=== PATIENT | female | born 1960 | race Caucasian/White ===

== ENCOUNTER 2020-10-31 06:32 | Outpatient (CLI) | payer MEDICARE, OTHER ==
[~2020-10-31] VITALS: Ht 160 cm; Wt 118.2 kg
[2020-10-31] MEDS ORDERED: LEVO100C4 PO (11:14)
[2020-10-31] MEDS ORDERED: CHOL500044 PO (11:14)
[2020-10-31] MEDS ORDERED: FERR142T7 PO (11:14)
[2020-10-31] MEDS ORDERED: FURO40TA4 PO (11:14)
[2020-10-31] MEDS ORDERED: GABA300C PO (11:14)
[2020-10-31] MEDS ORDERED: VNL75T PO ×2 (11:14)
[2020-10-31] MEDS ORDERED: ESTR42.52 VG (11:14)
[2020-10-31] MEDS ORDERED: OMEP40CA6 PO (11:14)
[2020-10-31] MEDS ORDERED: MONT10TA32 PO (11:14)
[2020-10-31] MEDS ORDERED: NF-MAG64T PO (11:14)
[2020-10-31] MEDS ORDERED: BACL10TA PO (11:14)
[2020-10-31] MEDS ORDERED: L.AC1CAP6 PO (11:14)
[2020-10-31] MEDS ORDERED: RT-ALBUINH INH (11:14)
[2020-10-31] MEDS ORDERED: FLUT1BLS3 IH (11:14)
[2020-10-31] MEDS ORDERED: MIRT-68 PO (11:14)
[2020-10-31] MEDS ORDERED: DILT180C85 PO (11:14)
[2020-10-31] MEDS ORDERED: DICL75TA2 PO (11:14)
[2020-10-31] MEDS ORDERED: CALC-657 PO (11:14)
[2020-10-31] MEDS ORDERED: ASPI-999 PO (11:14)
[2020-10-31] MEDS ORDERED: TOPI50TA13 PO (11:14)
[2020-10-31] MEDS ORDERED: MMT17NA NSEACH (11:14)
[2020-10-31] MEDS ORDERED: ACET1TAB43 PO (11:14)
[2020-10-31] MEDS ORDERED: LEVO5TAB28 PO (11:14)
[2020-10-31] MEDS ORDERED: [UNRECOGNIZED DRUG - CODE] PO (11:14)
== END 2020-10-31 11:19 | disposition home or self-care (01) ==
LOC: PREOP 06:32
PROVIDERS: ATTEND Specialist
DX: Z01.818 Encounter for other preprocedural examination (principal)

== ENCOUNTER 2020-11-04 09:39 | Day surgery (SDC) | payer MEDICARE, OTHER ==
[~2020-11-04] VITALS: Ht 160 cm; Wt 118.2 kg
[~2020-11-04 09:39] MED LIST: ACET1TAB43 PO; ASPI-999 PO; BACL10TA PO; CALC-657 PO; CHOL500044 PO; DICL75TA2 PO; DILT180C85 PO; ESTR42.52 VG; FERR142T7 PO; FLUT1BLS3 IH; FURO40TA4 PO; GABA300C PO; L.AC1CAP6 PO; LEVO100C4 PO; LEVO5TAB28 PO; MIRT-68 PO; MMT17NA NSEACH; MONT10TA32 PO; NF-MAG64T PO; OMEP40CA6 PO; RT-ALBUINH INH; TOPI50TA13 PO; VNL75T PO; [UNRECOGNIZED DRUG - CODE] PO
[2020-11-04 09:45] VITALS: BP 141/62
[2020-11-04] MEDS: TETRACAINE 0.5% OPHTH SOLN 4 ML BTL (SINGLE DOSE ONLY) OU PRN ×4 (09:59→10:15)
[2020-11-04] MEDS ORDERED: MOXIFLOXACIN OPHTH SOLN 5 MG/ML 0.3 ML SYRINGE OP ONE (10:00)
[2020-11-04] MEDS ORDERED: LIDOCAINE PF 1% 2 ML VIAL IR PRN (10:00)
[2020-11-04] MEDS ORDERED: TIMOLOL MALEATE 0.5% 5 ML (TIMOPTIC) BTL OU PRN (10:00)
[2020-11-04] MEDS ORDERED: POVIDONE (BETADINE) OPHTH SOLN 5% 30 ML OP ONE (10:00)
[2020-11-04] MEDS: TROPICAMIDE 1% OPH SOLN (MYDRIACYL) 15 ML BTL OP SCH ×3 (10:06→10:15)
[2020-11-04] MEDS: PHENYLEPHRINE 10% OPHTH (NEO-SYN) 5 ML BTL OU SCH ×3 (10:06→10:15)
--- NOTE | 2020-11-04 10:20 | Ophthalmologist Pre-Op Note ---
Pre-Operative Progress Note H&P Reviewed The H&P was reviewed, patient examined and no changes noted. Date H&P Reviewed: Nov 04, 2020 Time H&P Reviewed: 10:20 Pre-Op Dx Cataract, Right Eye SINA FINNEGAN MD Nov 04, 2020 10:20
[2020-11-04] MEDS ORDERED: MIDAZOLAM 2 MG/2 ML (VERSED) VIAL ONE (10:27)
--- NOTE | 2020-11-04 10:47 | Ophthalmology Operative Report ---
Cataract removal/placement IOL PREOPERATIVE DIAGNOSIS: Cataract Right Eye POSTOPERATIVE DIAGNOSIS: Cataract Right Eye PROCEDURE: Cataract removal and placement of posterior chamber implant, right eye SURGEON: Edil Finnegan ANESTHESIA: Topical with sedation COMPLICATIONS: None ESTIMATED BLOOD LOSS: Minimal DESCRIPTION OF PROCEDURE: After proper informed consent was obtained, the patient, a 60 female, was taken to the Operating Room and the right eye was anesthetized with tetracaine. The right eye was then prepped and draped in the usual manner. A wire lid speculum was placed. A paracentesis was made at the left hand position. Preservative free lidocaine was injected into the anterior chamber followed by viscoelastic. A clear corneal incision was made in the temporal position. A capsulorrhexis was preformed and the central nuclear and cortical material were removed. The posterior capsule was polished and Tomas 21.5 AU00T0 IOL was placed into the capsular bag. The residual viscoelastic was aspirated and balanced saline solution was injected into the anterior chamber. Moxifloxacin was injected into the anterior chamber. The wound was checked and found to be water tight. The patient tolerated the procedure well without complications. EDIL FINNEGAN MD Nov 04, 2020 10:47
[2020-11-04 11:00] VITALS: BP 168/91
--- NOTE | 2020-11-04 12:48 | Anesthesia-General Post-Op ---
MAC Patient Condition Mental Status/LOC: Same as Preop Cardiovascular: Satisfactory Nausea/Vomiting: Absent Respiratory: Satisfactory Pain: Controlled Complications: Absent Post Op Complications Complications None Follow Up Care/Instructions Patient Instructions None needed. Anesthesiology Discharge Order Discharge Order Patient is doing well, no complaints, stable vital signs, no apparent adverse anesthesia problems. No complications reported per nursing. CARLOS ENRIQUE MARTINS CRNA Nov 04, 2020 12:48
--- OUTSIDE RECORDS SUMMARY | 2020-11-06 16:37 | XMS REPORT | Clinical Summary ---
Author Author [employer] Organization [facility] Address Unknown Phone Unavailable Care Team Providers Care Section Beamer Name Role Phone Ebonie Herrera MD PP Allergies Comments Active Allergy Reactions Severity Noted Date Skin blistering Benzoin Other (see Medium 10/22/2013 comments) Hydrocodone 11/26/2017 Levofloxacin 11/26/2017 Severe joint pain Levofloxacin In D5w Other (see 10/22/2013 comments) Morphine 11/26/2017 Oxycodone 11/26/2017 Phenothiazines 11/26/2017 Carisoprodol 11/26/2017 Sulfa (Sulfonamide 11/26/2017 Antibiotics) Silver 11/26/2017 Benzalkonium Chloride 11/26/2017 Bupropion Hcl 11/26/2017 Medications End Date Status Medication Sig Dispensed Refills Start Date Active amLODIPine (NORVASC) 5 mg Take 5 mg by 3 08/31 tablet mouth 1 (one) 8 time each day. Active baclofen (LIORESAL) 10 mg Take 10 mg by 3 07/31 tablet mouth 3 8 (three) times per day. Active diclofenac (VOLTAREN) 75 3 mg EC tablet 8 Active montelukast (SINGULAIR) 2 10 mg tablet 8 Active mirtazapine (REMERON) 15 1 mg tablet 8 Active levothyroxine (SYNTHROID, 3 LEVOTHROID) 100 mcg 8 tablet Active gabapentin (NEURONTIN) 2 300 mg capsule 8 Active omeprazole (PriLOSEC) 40 3 mg capsule 8 Active albuterol HFA (PROVENTIL Inhale 2 0 HFA;VENTOLIN HFA) 90 puffs every 6 mcg/actuation inhaler (six) hours if needed for wheezing. Active ASPIRIN ORAL Take by 0 mouth. Active b complex vitamins Take 1 0 capsule capsule by mouth 1 (one) time each day. Active CALCIUM CITRATE ORAL Take by 0 mouth. Active calcium glycerophosphate Take by 0 (PRELIEF ORAL) mouth. Active colestipol (COLESTID) 1 Take 1 g by 0 gram tablet mouth 2 (two) times per day. Active cholecalciferol, vitamin Take 1,000 0 D3, (VITAMIN D3) 1,000 Units by unit capsule mouth 1 (one) time each day. Active estradiol (ESTRACE) 0.01 Insert 2 g 0 % (0.1 mg/gram) vaginal into the cream vagina 1 (one) time each day. Active ferrous sulfate (SLOW FE Take by 0 ORAL) mouth. Active fexofenadine HCl (DAVID Take by 0 ORAL) mouth. Active magnesium chloride Take by 0 (SLOW-MAG ORAL) mouth. Active mometasone furoate Administer 0 (NASONEX NASL) into affected nostril(s). Active pravastatin (PRAVACHOL) Take 40 mg by 0 40 mg tablet mouth 1 (one) time each day. Active L acidophil/B lactis/B Take by 0 longum (FLORAJEN3 ORAL) mouth. Active topiramate (TOPAMAX) 25 Take 25 mg by 0 mg tablet mouth 2 (two) times per day. Active traMADol (ULTRAM) 50 mg Take 50 mg by 0 tablet mouth every 6 (six) hours if needed for moderate pain (4-6). Active venlafaxine (EFFEXOR) 75 Take 75 mg by 0 mg tablet mouth 2 (two) times per day. Active hyoscyamine sulfate Place 125 mcg 0 (LEVSIN) 0.125 mg under the tablet,disintegrating tongue every 4 (four) hours if needed. Active tfusqtnslt-ygowbde-uhlkeq Take 1 0 12/30 ne (FIORINAL) 50-325-40 capsule by 8 mg capsule mouth. Active potassium 99 mg tablet Take by 0 mouth. Active sucralfate (CARAFATE) 1 Take 1 g by 0 gram tablet mouth 4 (four) times per day. Active turmeric 400 mg capsule Take by 0 mouth. Active topiramate (TOPAMAX) 50 3 01/23/201 mg tablet 8 Active sodium,potassium,mag take as 2 Bottle 0 02/04 sulfates (SUPREP BOWEL directed 8 PREP KIT) 17.5-3.13-1.6 gram recon soln Active Problems Problem Noted Date Abnormal liver enzymes 02/04/2018 Overview: Formatting of this note might be differ ent from the original. Added automatically from request for camila rivera [id number] Chronic diarrhea 12/24/2017 Morbid obesity with BMI of 45.0-49.9, adult 11/27/19 18 Metabolic syndrome 11/26/2017 ELIZABETH (obstructive sleep apnea) 11/26/2017 Gastroesophageal reflux disease 11/26/2017 Iron deficiency anemia 11/26/2017 Essential hypertension 11/26/2017 Interstitial cystitis 11/26/2017 Hypothyroidism 11/26/2017 Osteoarthritis of lumbar spine 11/26/2017 Asthma 11/26/2017 Resolved Problems Problem Noted Date Resolved Date Preop cardiovascular exam 01/14/2018 01/21/2018 Chronic fatigue 11/26/2017 12/24/2017 Dyspnea on exertion 11/26/2017 12/24/2017 Malignant neoplasm of overlapping sites of left breas t in female, estrogen 10/21/2013 01/21/2018 receptor positive Overview: Formatting of this note might be differ ent from the original. Overview: 09/2006: Premenopausal breast cancer s/p left MRM. High grade Invasive ductal carcinoma, ER- NV+ Her2-, 2 sep arate masses: 2.8 cm and 2.7 cm. +05/25 nodes Dose dense A/C--Taxotere. Radiation to chest wall Femara 04/2007 BRCA negative Family History Medical History Relation Name Comments Arthritis Other Asthma Other Cancer Other Depression Other Diabetes Other Heart attack Other Heart disease Other Hypertension Other Obesity Other Stroke Other Relation Name Status Comments Other Social History Date Tobacco Use Types Packs/Day Years Used Never Smoker Smokeless Tobacco: Never Used Comments Alcohol Use Standard Drinks/Week Yes 0 (1 standard drink = 0.6 o z pure alcohol) Sex Assigned at Date Recorded Not on file Last Filed Vital Signs Reading Time Taken Comments Vital Sign 130/95 02/04/2018 2:45 PM [employer] RECONDITIONER Blood Pressure 74 02/04/2018 2:45 PM CAN RECONDITIONER Pulse - - Temperature - - Respiratory Rate - - Oxygen Saturation - - Inhaled Oxygen Concentration 122 kg (268 lb) 02/11/2018 1:12 PM CAN RECONDITIONER Weight 158.7 cm (5' 2.48") 02/11/2018 1:12 PM CAN RECONDITIONER Height 48.27 02/11/2018 1:12 PM CAN RECONDITIONER Body Mass Index Plan of Treatment Health Maintenance Due Date Last Done Comments CT Colonography 1958 Cologuard 1958 Colonoscopy 1958 Colorectal Cancer 1958 Screening Mammogram 1958 MMR Vaccines (1 of 1 - 1959 Standard series) Varicella Vaccines (1 of 1959 2 - 2-dose childhood series) Pneumococcal (1 of 4 - 01/18/1964 PCV13) COVID-19 Vaccine (1) 1970 Depression Screening 1970 Pap Smear 1979 FOBT/FIT 2003 Sigmoidoscopy 2003 Zoster Vaccines (1 of 2) 01/18/2008 Osteoporosis Screening 02/12/2020 02/11/2018 Influenza Vaccine (#1) 2020 12/15/2012, 02/19/2012 DTaP,Tdap,and Td Vaccines 07/01/2024 07/01/2014 (2 - Td or Tdap) HIB Vaccines Aged Out No longer eligible based on patient's age to complete this topic HPV Vaccines Aged Out No longer eligible based on patient's age to complete this topic Hepatitis A Vaccines Aged Out No longer eligibl e based on patient's age to complete this topic Hepatitis B Vaccines Aged Out No longer eligibl e based on patient's age to complete this topic IPV Vaccines Aged Out No longer eligible based on patient's age to complete this topic Meningococcal Vaccine Aged Out No longer eligib le based on patient's age to complete this topic Results Not on filefrom Last 3 Months Insurance Type Payer Benefit Subscriber ID Effective Phone Address Plan / Dates Group MEDICARE MEDICARE [id number] 2011- PART A AND Present B [facility] [id number] 2015-P NATIONAL resent 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
== END 2020-11-04 11:05 ==
LOC: SDC 09:39
PROVIDERS: ATTEND Specialist
DX: H25.11 Age-related nuclear cataract, right eye (principal); I10 Essential (primary) hypertension; J45.909 Unspecified asthma, uncomplicated; E66.01 Morbid (severe) obesity due to excess calories; F32.9 Major depressive disorder, single episode, unspecified; M19.90 Unspecified osteoarthritis, unspecified site; E03.9 Hypothyroidism, unspecified; E78.00 Pure hypercholesterolemia, unspecified; D64.9 Anemia, unspecified; Z88.1 Allergy status to other antibiotic agents; Z79.82 Long term (current) use of aspirin; Z79.899 Other long term (current) drug therapy; Z68.42 Body mass index [BMI] 45.0-49.9, adult; Z88.5 Allergy status to narcotic agent
CPT/HCPCS: 66984; V2632

== ENCOUNTER 2020-11-11 07:08 | Outpatient (CLI) | payer MEDICARE, OTHER | END 2020-11-11 14:21 | disposition home or self-care (01) | LOC: PREOP 07:08 | PROVIDERS: ATTEND Specialist | DX: Z01.818 Encounter for other preprocedural examination (principal) ==

== ENCOUNTER 2020-11-18 10:00 | Day surgery (SDC) | payer MEDICARE, OTHER ==
[~2020-11-18] VITALS: Ht 160 cm; Wt 118.2 kg
[2020-11-18] MEDS: TETRACAINE 0.5% OPHTH SOLN 4 ML BTL (SINGLE DOSE ONLY) OU PRN ×4 (10:13→10:35)
[2020-11-18] MEDS ORDERED: MOXIFLOXACIN OPHTH SOLN 5 MG/ML 0.3 ML SYRINGE OP ONE (10:15)
[2020-11-18] MEDS ORDERED: TIMOLOL MALEATE 0.5% 5 ML (TIMOPTIC) BTL OU PRN (10:15)
[2020-11-18] MEDS ORDERED: LIDOCAINE PF 1% 2 ML VIAL IR PRN (10:15)
[2020-11-18] MEDS ORDERED: POVIDONE (BETADINE) OPHTH SOLN 5% 30 ML OP ONE (10:15)
[2020-11-18] MEDS ORDERED: MIDAZOLAM 2 MG/2 ML (VERSED) VIAL ONE (10:18)
[2020-11-18 10:20] VITALS: BP 125/67
[2020-11-18] MEDS: PHENYLEPHRINE 10% OPHTH (NEO-SYN) 5 ML BTL OU SCH ×3 (10:24→10:35)
[2020-11-18] MEDS: TROPICAMIDE 1% OPH SOLN (MYDRIACYL) 15 ML BTL OP SCH ×3 (10:24→10:35)
--- NOTE | 2020-11-18 10:35 | Ophthalmologist Pre-Op Note ---
Pre-Operative Progress Note H&P Reviewed The H&P was reviewed, patient examined and no changes noted. Date H&P Reviewed: Nov 18, 2020 Time H&P Reviewed: 10:35 Pre-Op Dx Cataract, Left Eye SINA FINNEGAN MD Nov 18, 2020 10:35
--- NOTE | 2020-11-18 10:57 | Ophthalmology Operative Report ---
Cataract removal/placement IOL PREOPERATIVE DIAGNOSIS: Cataract Left Eye POSTOPERATIVE DIAGNOSIS: Cataract Left Eye PROCEDURE: Cataract removal and placement of posterior chamber implant, left eye SURGEON: Edil Finnegan ANESTHESIA: Topical with sedation COMPLICATIONS: None ESTIMATED BLOOD LOSS: Minimal DESCRIPTION OF PROCEDURE: After proper informed consent was obtained, the patient, a 60 female, was taken to the Operating Room and the left eye was anesthetized with tetracaine. The left eye was then prepped and draped in the usual manner. A wire lid speculum was placed. A paracentesis was made at the left hand position. Preservative free lidocaine was injected into the anterior chamber followed by viscoelastic. A clear corneal incision was made in the temporal position. A capsulorrhexis was preformed and the central nuclear and cortical material were removed. The posterior capsule was polished and an Tomas 21.0 AU00T0 was placed into the capsular bag. The residual viscoelastic was aspirated and balanced saline solution was injected into the anterior chamber. Moxifloxacin was injected into the anterior chamber. The wound was checked and found to be water tight. The patient tolerated the procedure well without complications. EDIL FINNEGAN MD Nov 18, 2020 10:57
[2020-11-18 11:00] VITALS: BP 111/69
--- NOTE | 2020-11-18 13:31 | Anesthesia-General Post-Op ---
MAC Patient Condition Mental Status/LOC: Same as Preop Cardiovascular: Satisfactory Nausea/Vomiting: Absent Respiratory: Satisfactory Pain: Controlled Complications: Absent Post Op Complications Complications None Follow Up Care/Instructions Patient Instructions None needed. Anesthesiology Discharge Order Discharge Order Patient is doing well, no complaints, stable vital signs, no apparent adverse anesthesia problems. No complications reported per nursing. TRACY MORRIS CRNA Nov 18, 2020 13:31
== END 2020-11-18 11:02 ==
LOC: SDC 10:00
PROVIDERS: ATTEND Specialist
DX: H25.12 Age-related nuclear cataract, left eye (principal); I10 Essential (primary) hypertension; J45.909 Unspecified asthma, uncomplicated; G47.33 Obstructive sleep apnea (adult) (pediatric); F32.9 Major depressive disorder, single episode, unspecified; M19.90 Unspecified osteoarthritis, unspecified site; E66.9 Obesity, unspecified; Z68.42 Body mass index [BMI] 45.0-49.9, adult; Z79.899 Other long term (current) drug therapy; Z79.51 Long term (current) use of inhaled steroids
CPT/HCPCS: 66984; V2632